=== PATIENT | male | born 1985 | race Caucasian/White ===

== ENCOUNTER 2022-11-18 15:55 | Emergency (ER) | payer SELFPAY ==
[~2022-11-18] VITALS: Ht 167.6 cm; Wt 84.1 kg
[2022-11-18 15:57] VITALS: BP 160/100
== END 2022-11-18 17:05 | disposition left against medical advice (07) ==
LOC: M ED 15:55
DX: Z53.21 Procedure and treatment not carried out due to patient leaving prior to being seen by health care provider (principal)